=== PATIENT | female | born 1970 | race Caucasian/White ===

== ENCOUNTER 2018-11-28 06:33 | Day surgery (SDC) | payer OTHER ==
[2018-11-28] MEDS ORDERED: VERSED ONE (07:25)
[2018-11-28] MEDS ORDERED: SUBLIMAZE ONE (07:26)
[2018-11-28] MEDS ORDERED: DIPRIVAN 10 MG/ML IV ONE (07:26)
[2018-11-28] MEDS ORDERED: WATER FOR IRRIG STERILE IR ONE ×2 (07:27→07:32)
[2018-11-28] MEDS ORDERED: LIDOCAINE VISCOUS 2% ONE (07:32)
[2018-11-28] MEDS ORDERED: XYLOCAINE 1% 20 mL ONE ×2 (07:33→08:45)
[2018-11-28] MEDS ORDERED: HURRICAINE ONE 20% TOPICAL SPRAY MM (07:46)
--- NOTE | 2018-11-28 07:47 | Anesthesia Consultation ---
Anesthesia Consult and Med Hx Date of service: 11/28/18 - Airway Anesthetic Teeth Evaluation: Good ROM Head & Neck: Adequate Mental/Hyoid Distance: Adequate Mallampati Class: Class III Intubation Access Assessment: Good - Pulmonary Exam CTA: Yes - Cardiac Exam Cardiac Exam: RRR - Pre-Operative Health Status ASA Pre-Surgery Classification: ASA3 Proposed Anesthetic Plan: MAC - Pulmonary Hx Smoking: Yes (30 YRS) Hx Respiratory Symptoms: (bronchiectasis, cough) COPD: Yes Hx Sleep Apnea: No - Cardiovascular System Hx Hypertension: No - Central Nervous System Hx Psychiatric Problems: Yes (depression) - Gastrointestinal Hx Ulcer: No Hx Gastroesophageal Reflux Disease: No - Endocrine Hx Renal Disease: No Hx Insulin Dependent Diabetes: No Hx Thyroid Disease: (h/o thyroidectomy, not on meds) - Hematic Hx Anemia: No Hx Sickle Cell Disease: No - Other Systems Hx Alcohol Use: No Hx Substance Use: No Hx Cancer: No Hx Obesity: No
[2018-11-28] MEDS ORDERED: NACL 0.9% 1000 ML 1,000 ML IV SCH (08:00)
--- NOTE | 2018-11-28 09:23 | Short Stay Summary ---
Short Stay Documentation Date of service: 11/28/18 Narrative H&P: 48 yo presented with increased cough, green sputum, hemoptysis, increased SOB. No fevers, chills, chest pain. CT shows bronchiectasis and cavitary lesions KRYSTA. - History Past Medical History: other (COPD, Hx of Tobacco abuse, Bronchiectasis) Past Surgical History: No surgical history Social history: full code, no smoking, no alcohol abuse, no prescription drug abuse, no IV drug use - Allergies and Medications Current Medications: Allergies No Known Allergies Allergy (Verified 11/28/18 07:12) Home Medications Medication Instructions Recorded Confirmed Last Taken Type ALBUTEROL Inhaler (OR & NICU) 2 puff INHALATION BID 11/28/18 11/28/18 11/27/18 History Sertraline 100 mg PO DAILY 11/28/18 11/28/18 11/27/18 History Active Medications Sodium Chloride (Nacl 0.9% 1000 Ml) 1,000 mls @ 50 mls/hr IV DIRECT PHANI Last Admin: 11/28/18 07:50 Dose: 50 mls/hr Documented by: - Physical exam General appearance: no acute distress, well-nourished Integumentary: no rash HEENT: Atraumatic, PERRLA Lungs: Clear to auscultation Breasts: deferred Heart: Regular rate, Normal S1, Normal S2, No murmurs Gastrointestinal: normal, normoactive bowel sounds Female Genitourinary: deferred Rectal Exam: deferred Extremities: no ischemia, No edema, normal temperature, normal color, Full ROM Neurological: Normal gait, Normal speech, Strength at 5/5 X4 ext, Normal tone, Sensation intact, Cranial nerves 3-12 NL - Brief post op/procedure progress note Date of procedure: 11/27/18 Pre-op diagnosis: Pulmonary nodules, Bronchiectasis Post-op diagnosis: same Procedure: Bronch with washings, BAL, and Brushings Anesthesia: MAC Findings: Vocal cords, Epiglottis, Trachea, all airways normal appearing without endobronchial lesions. Scant white mucous noted. Surgeon: DENVER FORD Estimated blood loss: none Pathology: list (bronch wash and brush to cytology) Specimen disposition: to lab Condition: stable - Hospital course Hospital course: Bronch done per above under MAC (refer to separate reports). Supported with 100% NRB during procedure. Oxygenation stable throughout, as were vital signs. Specimens obtained per above + sent to micro for culture (see dictated report). No CXR done as no biopsies were obtained (nodules too small/peripheral). - Disposition Condition at discharge: Good Disposition: [id number] TO HOME OR SELFCARE - Discharge Diagnoses (1) Pulmonary nodule Status: Acute (2) Bronchiectasis Status: Chronic (3) COPD (chronic obstructive pulmonary disease) Status: Chronic Qualifiers: COPD type: unspecified COPD Qualified Code(s): J44.9 - Chronic obstructive pulmonary disease, unspecified Short Stay Discharge Plan Activity: no restrictions Weight Bearing Status: Full Weight Bearing Diet: regular Additional Instructions: 1. Call office with questions, f/u in a 1-2 weeks to review results 2. Come to ED for increased SOB, chest pain, high fevers, coughing up increasing amounts of blood Follow up with: DENVER FORD MD [Staff Physician] - 7 Days
[2018-11-28] MEDS ORDERED: ZOFRAN IV NR (09:30)
[2018-11-28] MEDS ORDERED: ZOFRAN ONE (09:32)
[2018-11-28] MEDS ORDERED: PROVENTIL IH ONE (09:33)
--- NOTE | 2018-11-28 09:40 | Operative Report ---
BRONCHOSCOPY REPORT INDICATIONS: Cavitary pulmonary nodules, bronchiectasis, hemoptysis, and COPD. DESCRIPTION OF PROCEDURE: Informed consent was obtained and placed on the patient's chart. Risks, benefits, and alternatives were explained and she agreed to proceed. She underwent topical anesthesia of her nose and oropharynx with topical lidocaine and benzocaine spray. She was supported with 100% oxygen via nonrebreather face mask. She underwent monitored anesthesia care, and please refers to separate report. When she was adequately sedated, the bronchoscope was inserted via the right nare. The vocal cords, epiglottis, and trachea were all normal. Segmental and subsegmental airways were thoroughly inspected and found to be unremarkable with no obvious endobronchial abnormalities or lesions. There was scant white mucus that was suctioned easily. There was no evidence of bleeding, either acute or old. Bronchial washings were obtained from the left upper lobe and sent to microbiology and cytology. Bronchoalveolar lavage was obtained from the lingula and sent to microbiology for culture. Bronchial brushings were obtained from the left upper lobe and sent to cytology. Biopsies were not performed due to the small nodules and peripheral location. The bronchoscope was subsequently removed. The patient tolerated the procedure well with no immediate complications, and oxygenation and vital signs were stable throughout. ESTIMATED BLOOD LOSS: None. COMPLICATIONS: No immediate. DISPOSITION: Discharged home. SPECIAL INSTRUCTIONS: 1. Return to the office to review results in 1-2 weeks. 2. Return to ER for increased shortness of breath, cough, high fevers, increased hemoptysis, etc. SPECIMENS: As described above. JOB# [id number] DCR/NTS
[2018-11-28] MEDS ORDERED: PROVENTIL IH NR (09:45)
[2018-11-28 10:53] VITALS: BP 140/89
== END 2018-11-28 06:34 | disposition home or self-care (01) ==
LOC: GIO 06:33
PROVIDERS: ATTEND Internal Medicine Critical Care Medicine
DX: J18.8 Other pneumonia, unspecified organism (principal); J47.9 Bronchiectasis, uncomplicated; R04.2 Hemoptysis; J43.9 Emphysema, unspecified; E78.00 Pure hypercholesterolemia, unspecified; K21.9 Gastro-esophageal reflux disease without esophagitis; F32.9 Major depressive disorder, single episode, unspecified; F17.210 Nicotine dependence, cigarettes, uncomplicated; Z79.899 Other long term (current) drug therapy; Z98.890 Other specified postprocedural states; Z98.51 Tubal ligation status; R91.1 Solitary pulmonary nodule
CPT/HCPCS: 31623; 31624; 36415; 87102; 87116; 88104; 88112; 88312; J2250; J2405; J2704; J3010; J7030